=== PATIENT | male | born 1955 | race Caucasian/White ===

== ENCOUNTER 2018-09-01 08:48 | Inpatient (IN) | payer OTHER ==
[2018-09-01] VITALS (31 sets, daily range): BP systolic 93–125; BP diastolic 54–89
[~2018-09-01] VITALS: Ht 193 cm; Wt 136.1 kg
[2018-09-01] MEDS ORDERED: NS(*) 0.9% 1000 ML BAG 1,000 ML IV ONE ×2 (09:00→09:45)
[2018-09-01] MEDS ORDERED: BLOOD PRESSURE (09:03)
[2018-09-01 09:13] LABS: PLATELET COUNT, AUTOMATED 137 K/uL (150-450)
--- NOTE | 2018-09-01 09:13 | ER Report ---
History and Physical Time Seen By MD: 09:01 Hx. of Stated Complaint: DIZZINESS, INABILITY TO EAT, INCREASED URINATION HPI/ROS CHIEF COMPLAINT: Fatigue doesn't feel well HISTORY OF PRESENT ILLNESS: 62-year-old male comes emergency Department with about a month to month and a half of a general nonspecific symptoms lightheaded doesn't feel well increasing urination and increased thirst orthostatic type symptoms abdominal discomfort decreased appetite weight loss general fatigue and malaise otherwise denies chest pain or additional complaints noted no significant past medical history other than hypertension REVIEW OF SYSTEMS: Respiratory: No cough, no dyspnea. Cardiovascular: No chest pain, no palpitations. Gastrointestinal: No vomiting, no abdominal pain. Musculoskeletal: No back pain. Remainder of the 14 system rev: Yes Allergies: Coded Allergies: No Known Drug Allergies (Unverified , 09/01/18) Home Meds Reported Medications [Blood Pressure] No Conflict Check 09/01/18 Reviewed Nurses Notes: Yes Old Medical Records Reviewed: Yes Constitutional Vital Sign - Last 24 Hours 09/01/18 09/01/18 09/01/18 09/01/18 08:54 09:00 09:30 10:00 Temp 98.0 Pulse 64 65 59 60 Resp 16 14 17 B/P (MAP) 131/90 128/86 (100) 116/61 (79) 81/53 (62) Pulse Ox 94 95 92 92 O2 Delivery Room Air 09/01/18 10:30 Pulse 57 Resp 10 B/P (MAP) 94/62 (73) Pulse Ox 92 Physical Exam General Appearance: [The patient is alert, has no immediate need for airway protection and no current signs of toxicity.] [ ] Eyes: Pupils equal and round no injection. Respiratory: Chest is non tender, lungs are clear to auscultation. Cardiac: regular rate and rhythm [ ] Gastrointestinal: Abdomen is soft and non tender, no masses, bowel sounds normal. Musculoskeletal: Neck: Neck is supple and non tender. Extremities have full range of motion and are non tender. Skin: No rashes or lesions. [ ] DIFFERENTIAL DIAGNOSIS: After history and physical exam differential diagnosis was considered for diabetes DKA malignancy infection Medical Decision Making Data Points Result Diagram: 09/01/18 0902 09/01/18 1009 Laboratory Hematology Test 09/01/18 09:02 09/01/18 10:09 09/01/18 11:39 Red Blood Count 4.94 M/uL (4.00-5.60) Mean Corpuscular Volume 96.9 fL (80.0-96.0) Mean Corpuscular Hemoglobin 32.1 pg (26.0-33.0) Mean Corpuscular Hemoglobin Concent 33.1 g/dL (32.0-36.0) Red Cell Distribution Width 13.7 % (11.5-14.5) Mean Platelet Volume 11.6 fL (7.2-11.1) Neutrophils (%) (Auto) 77.9 % (39.4-72.5) Lymphocytes (%) (Auto) 11.4 % (17.6-49.6) Monocytes (%) (Auto) 8.7 % (4.1-12.4) Eosinophils (%) (Auto) 1.5 % (0.4-6.7) Basophils (%) (Auto) 0.5 % (0.3-1.4) Nucleated RBC Relative Count (auto) 0.0 /100WBC Neutrophils # (Auto) 5.1 K/uL (2.0-7.4) Lymphocytes # (Auto) 0.8 K/uL (1.3-3.6) Monocytes # (Auto) 0.6 K/uL (0.3-1.0) Eosinophils # (Auto) 0.1 K/uL (0.0-0.5) Basophils # (Auto) 0.0 K/uL (0.0-0.1) Nucleated RBC Absolute Count (auto) 0.00 K/uL Troponin I < 0.012 ng/ml Sodium Level 129 mmol/L (137-145) Potassium Level 5.3 mmol/L (3.5-5.0) Chloride Level 87 mmol/L (98-107) Carbon Dioxide Level 27 mmol/L (22-30) Blood Urea Nitrogen 44 mg/dl (9-21) Creatinine 1.90 mg/dl (0.66-1.25) Glomerular Filtration Rate Calc 36.0 Calcium Level 9.2 mg/dl (8.4-10.2) Total Bilirubin 0.9 mg/dl (0.2-1.3) Aspartate Amino Transf (AST/SGOT) 40 U/L (0-35) Alanine Aminotransferase (ALT/SGPT) 52 U/L (0-56) Alkaline Phosphatase 86 U/L (0-126) Total Protein 6.5 g/dl (6.3-8.2) Albumin 4.0 g/dl (3.5-5.0) Chemistry Test 09/01/18 09:02 09/01/18 10:09 White Blood Count 6.6 k/uL (4.5-11.0) Red Blood Count 4.94 M/uL (4.00-5.60) Hemoglobin 15.9 g/dL (14.0-18.0) Hematocrit 47.9 % (42.0-52.0) Mean Corpuscular Volume 96.9 fL (80.0-96.0) Mean Corpuscular Hemoglobin 32.1 pg (26.0-33.0) Mean Corpuscular Hemoglobin Concent 33.1 g/dL (32.0-36.0) Red Cell Distribution Width 13.7 % (11.5-14.5) Platelet Count 137 K/uL (150-450) Mean Platelet Volume 11.6 fL (7.2-11.1) Neutrophils (%) (Auto) 77.9 % (39.4-72.5) Lymphocytes (%) (Auto) 11.4 % (17.6-49.6) Monocytes (%) (Auto) 8.7 % (4.1-12.4) Eosinophils (%) (Auto) 1.5 % (0.4-6.7) Basophils (%) (Auto) 0.5 % (0.3-1.4) Nucleated RBC Relative Count (auto) 0.0 /100WBC Neutrophils # (Auto) 5.1 K/uL (2.0-7.4) Lymphocytes # (Auto) 0.8 K/uL (1.3-3.6) Monocytes # (Auto) 0.6 K/uL (0.3-1.0) Eosinophils # (Auto) 0.1 K/uL (0.0-0.5) Basophils # (Auto) 0.0 K/uL (0.0-0.1) Nucleated RBC Absolute Count (auto) 0.00 K/uL Troponin I < 0.012 ng/ml Glomerular Filtration Rate Calc 36.0 Calcium Level 9.2 mg/dl (8.4-10.2) Total Bilirubin 0.9 mg/dl (0.2-1.3) Aspartate Amino Transf (AST/SGOT) 40 U/L (0-35) Alanine Aminotransferase (ALT/SGPT) 52 U/L (0-56) Alkaline Phosphatase 86 U/L (0-126) Total Protein 6.5 g/dl (6.3-8.2) Albumin 4.0 g/dl (3.5-5.0) ED Course/Re-evaluation ED Course ED conical Chris 2-year-old male comes in with vague nonspecific symptoms including polyuria primary polydipsia glucose at bedside is reading high is number was over 850 with a CMP he was not in diabetic ketoacidosis overhead over the potassium with an otherwise normal EKG he was describing polyuria polydipsia running in 2 L of fluid to dose of 10 units of regular insulin with minimal improvement of his sugar will admit him today to the ICU on an insulin infusion for hyperosmolar nonketotic elevated glucose Decision to Disposition Date: September 01, 2018 Decision to Disposition Time: 11:42 Depart Departure Latest Vital Signs Vital Signs Date Time Temp Pulse Resp B/P (MAP) Pulse Ox O2 Delivery O2 Flow Rate FiO2 09/01/18 10:30 57 10 94/62 (73) 92 09/01/18 08:54 98.0 Room Air Impression: Primary Impression: Hyperglycemia Condition: Improved Disposition: Admitted from ER CLOVIS REYES MD September 01, 2018 09:13
--- NOTE | 2018-09-01 09:24 | EKG ---
FACILITY: [facility] PATIENT NAME: KAMLESH HOFFMANN : [id number] MR: [id number] V: [id number] EXAM DATE: ORDERING PHYSICIAN: CLOVIS REYES TECHNOLOGIST: ALYSSA Test Reason : DIZZINESS Blood Pressure : / mmHG Vent. Rate : 059 BPM Atrial Rate : 059 BPM P-R Int : 180 ms QRS Dur : 120 ms QT Int : 428 ms P-R-T Axes : 063 081 041 degrees QTc Int : 423 ms Sinus bradycardia Otherwise normal ECG No previous ECGs available Confirmed by ASHLEY COCHRAN ([id number]) on 09/01/2018 6:19:13 PM Referred By: AMY Confirmed By:ASHLEY COCHRAN
[2018-09-01] MEDS ORDERED: INSU HUM REG 100 U/ML(ER ONLY) 10 ML VIAL SUBQ ONE ×2 (09:30→10:55)
[2018-09-01] MEDS ORDERED: INSULIN HUM REG 100 UN/ML 3 ML VIAL SC ONE (10:50)
[2018-09-01] MEDS ORDERED: INFLUENZA VIRUS VAC 0.5ML SYR IM ONLY ONE (13:35)
[2018-09-01] MEDS: NS(*) 0.9% 1000 ML BAG 1,000 ML IV PRN ×2 (13:59→16:12)
[2018-09-01] MEDS ORDERED: AMLO-127 PO (15:30)
[2018-09-01] MEDS ORDERED: INS HUM REG* 100 U/ML(ER ONLY) 100 UNIT in NS(*) 0.9% 100 ML BAG 99 ML IV SCH (15:30)
[2018-09-01] MEDS ORDERED: ATEN100T93 PO (15:30)
[2018-09-01] MEDS ORDERED: HYDR-2966 PO (15:31)
[2018-09-01] MEDS ORDERED: BENA40TA53 PO (15:31)
[2018-09-01] MEDS: KCL/D1/2NS 20 MEQ 1000 ML 1,000 ML IV PRN ×2 (17:08→21:09)
--- NOTE | 2018-09-01 17:44 | History & Physical ---
History of Present Illness Chief Complaint Lightheaded History of Present Illness This patient presented to the emergency room complaining of not feeling well for the past several months. He also complains of increased urination and weight loss. History Problems: (1) Essential hypertension Home Meds Reported Medications Benazepril Hcl (BENAZEPRIL HCL) 40 Mg Tablet, 40 MG PO QDAY, TAB 09/01/18 Hydrochlorothiazide (HYDROCHLOROTHIAZIDE) 25 Mg Tablet, 1 TAB PO QDAY, TAB 09/01/18 Amlodipine Besylate (AMLODIPINE BESYLATE) 10 Mg Tablet, 1 TAB PO QDAY, TAB 09/01/18 Atenolol (ATENOLOL) 100 Mg Tablet, 1 TAB PO QDAY, TAB 09/01/18 [Blood Pressure] No Conflict Check 09/01/18 Allergies: Coded Allergies: No Known Drug Allergies (Unverified , 09/01/18) Hx Smoking: No Hx Alcohol Use: Yes Hx Substance Use Disorder: No History of IV Drug Use: No Review of Systems All Systems Reviewed/Normal: Yes, Except as Noted Neurological: Weakness Exam Vital Signs Vital Signs Date Time Temp Pulse Resp B/P (MAP) Pulse Ox O2 Delivery O2 Flow Rate FiO2 09/01/18 17:00 52 15 93/57 (69) 94 Nasal Cannula 2.0 09/01/18 14:00 98.6 Neuro: No Gross deficits Eyes: PERRLA Cardiovascular: Regular Rate and Rhythm Respiratory: Clear to Auscultation GI: Abd Soft and Non-Tender Extremities: No Edema Integumentary: No Cyanosis Medical Decision Making Data Points Result Diagram: 09/01/18 0902 09/01/18 1451 Assessment and Plan Problems: (1) Type 2 diabetes mellitus with hyperosmolar nonketotic hyperglycemia Assessment & Plan: He did present with a glucose >800 without ketosis. He has been started on fluid resuscitation and IV insulin. (2) Essential hypertension Assessment & Plan: He has been on chronic treatment with amlodipine, atenolol, benazepril, and hydrochlorothiazide. All of these have been held secondary to borderline low blood pressure. Venous Thromboembolism Antithrombotics Is Pt On Any Antithrombotics?: No Exam Sepsis Risk: No Definite Risk ASHLEY COCHRAN DO September 01, 2018 17:44
[2018-09-02] VITALS (17 sets, daily range): BP systolic 97–134; BP diastolic 56–94
[2018-09-02] MEDS: KCL/D1/2NS 20 MEQ 1000 ML 1,000 ML IV PRN ×2 (01:07→05:07)
[2018-09-02 05:11] LABS: PLATELET COUNT, AUTOMATED 112 K/uL (150-450)
[2018-09-02] MEDS ORDERED: INSULIN HUM LISPRO 100 UN/ML 3 ML VIAL SUBQ PRN (07:45)
[2018-09-02] MEDS ORDERED: ENOXAPARIN 40 MG/0.4ML SYR SC SCH (09:00)
[2018-09-02] MEDS ORDERED: INSULIN GLARGINE 100 U/ML 3 ML PEN SUBQ SCH (09:00)
--- NOTE | 2018-09-02 12:24 | Medical Nutrition Therapy ---
Nutrition Anthropometrics Height (Inches): 76 (Stated Height) Weight (Pounds): 300 (Pt stated most recent wt was 285 lbs) Weight (Calculated Kilograms): 136.078 BMI: 36.5 Hx Weight Loss: Yes (Lost 35 lbs x 2 months (11% weight loss considered severe)) Caleb Nutrition Score: Adequate Caleb Nutrition Risk Score: 22 Dietary Referral Nutrition Risk Factors: Nutrition Risk Comment: Physical Findings Physical Appearance: Obese BMI 30-39 Skin Appearance Skin Appearance: Edema Edema Location Modifier: Edema Location: Type of Edema: Degree of Edema: Gastrointestinal Symptoms GI Symtoms: Tube Present: Bowel Sounds: Recent Bowel Pattern: Stool Characteristics: Nutrition/Food History > 15 lb Wt. Gain/1 Month Improving Alcohol Use: Currently Breakfast: Typically 3 meals per day no snacks Nutritional Diagnosis Nutritional Risk Acuity 2: Blood Glucose > 300mg/dl Past Medical History: HTN on multiple medications Nutritional Acuity: 2-Moderate Nutrition Diagnosis: Involuntary Wt. Loss Nutrition Etiology: Physiological Causes Nutrition Problem/Etiology/Sym: wt loss of 11% x 2 months, polydipsia, nocturia, blood glucose >800mg/dL, recent diagnosis of type II diabetes Energy Requirement: 1943 ([id number] (15-20kcal used UBW of 285 lbs)) Protein Requirement: 104 (104-130 (.8-1g/kg UBW)) Fluid Requirement: 1943 (1mL/kcal) Diet Type: Diabetic Nutrition Intervention: Teaching, Obtain Height and Weight Drug: Diuretics Drug/Nutrition Recommendations: Potassium Supplement (Taking Hydrocholorthiazide) Nutritional Education Nutrition Education Topic: Diabetic Nutrition Learning Readiness: Interested Teaching Methods: Discussion, Handout Response to Teaching: Verbalize understanding Teaching Recipient: Patient, Significant Other Nutrition Counseling: Discussed with patient foods that contained carbohydrates. Pt was able to list food groups that contained carbohydrates. Provided handout for pt to reference carbohydrate intake of foods. Discussed foods that did not contain carbohydrates including protein and fat. Discussed plate model method of controlling carbohydrates. Discussed target blood glucose ranges and monitoring food intake using food/glucose logs. Per ICU nurse pt is likely to go home on Lantus. Goal is to maintain blood glucose by controlling portions of carbohydrates, will need to follow diabetic diet and heart healthy diet. Recommend monitor blood glucose and follow up with dietitian in [place]. Nutrition Monitoring & Eval Nutrition Goals: Eat 75-100% Meal Nutrition Follow-Up: Fair Intake Nutrition Monitoring: Monitor blood glucose. RD Patient Assessment Time: [address] Assessment Type: RD Assessment Patient Nutrition Acuity: 2-Moderate Follow Up Date: Sep 05, 2018 Nutritional Comment: Discussed with patient foods that contained carbohydrates. Pt was able to list food groups that contained carbohydrates. Provided handout for pt to reference carbohydrate intake of foods. Discussed foods that did not contain carbohydrates including protein and fat. Discussed plate model method of controlling carbohydrates. Discussed target blood glucose ranges and monitoring food intake using food/glucose logs. Per ICU nurse pt is likely to go home on Lantus. Goal is to maintain blood glucose by controlling portions of carbohydrates, will need to follow diabetic diet and heart healthy diet. Recommend monitor blood glucose and food log and review with dietitian or MD in [place]. FRANCISCO HUDSON September 02, 2018 12:24
[2018-09-02] MEDS ORDERED: INSU100I30 SUBQ (15:38)
--- NOTE | 2018-09-02 15:41 | Hospitalist Depart ---
Discharge Summary Reason for Hosp/Final Diag: (1) Type 2 diabetes mellitus with hyperosmolar nonketotic hyperglycemia Hospital Course & Plan: He did present with a glucose >800 without ketosis. He has been started on fluid resuscitation and IV insulin. Converted to SQ insulin and provided with Lantus pen, glucometer, lancet and test strip prescriptions. (2) Essential hypertension Hospital Course & Plan: He has been on chronic treatment with amlodipine, atenolol, benazepril, and hydrochlorothiazide. All of these have been held secondary to borderline low blood pressure. Recommend follow up with PCP and reevaluate regimen, should be on at least low dose RICO or ARB with new diagnosis DM. Departure Weight (Pounds): 300 (Pt stated most recent wt was 285 lbs) Result Diagram: 09/02/1845409/02/18454 Condition: Improved Discharge: Home Discharge Instructions Home Meds Active Scripts Insulin Glargine 100 Un/Ml Pen (LANTUS SOLOSTAR PEN) 100 Unit/1 Ml Insuln.pen, 20 UNIT SUBQ DAILY for 30 Days, #2 PEN Prov:FABIANO CLARK DO 09/02/18 Discontinued Reported Medications Benazepril Hcl (BENAZEPRIL HCL) 40 Mg Tablet, 40 MG PO QDAY, TAB 09/01/18 Hydrochlorothiazide (HYDROCHLOROTHIAZIDE) 25 Mg Tablet, 1 TAB PO QDAY, TAB 09/01/18 Amlodipine Besylate (AMLODIPINE BESYLATE) 10 Mg Tablet, 1 TAB PO QDAY, TAB 09/01/18 Atenolol (ATENOLOL) 100 Mg Tablet, 1 TAB PO QDAY, TAB 09/01/18 [Blood Pressure] No Conflict Check 09/01/18 Diet: Diabetic Activity: As Tolerated Special Instructions: Follow up with PCP to reevaluate BP regimen and to adjust medications for diabetes. Venous Thromboembolism Antithrombotics Is Pt On Any Antithrombotics?: No FABIANO CLARK DO September 02, 2018 15:41
== END 2018-09-02 16:40 | disposition home or self-care (01) | DRG 639 ==
LOC: ER 09:01 → ICU 11:54
PROVIDERS: ADMIT Family Medicine; ATTEND Family Medicine
DX: E11.00 Type 2 diabetes mellitus with hyperosmolarity without nonketotic hyperglycemic-hyperosmolar coma (NKHHC) (principal); I10 Essential (primary) hypertension
CPT/HCPCS: 36415; 36416; 82040; 82247; 82310; 82374; 82435; 82565; 82947; 82948; 84075; 84132; 84155; 84295; 84450; 84460; 84484; 84520; 85025; 93005; 96360; 96361; 96372; 99284; J1650; J1815; J3480; J7030; J7050